=== PATIENT | male | born 1995 | race Caucasian/White ===

== ENCOUNTER 2016-07-25 20:11 | Emergency (ER) | payer OTHER ==
[~2016-07-25] VITALS: Ht 170.2 cm; Wt 61.2 kg
[2016-07-25 20:25] VITALS: BP 130/66
[2016-07-25] MEDS ORDERED: TETRACAINE 0.5% OPTH SOL 2 ML BTL OP ONE (22:30)
[2016-07-25] MEDS ORDERED: FLUORESCEIN OPTH STRIP 1 MG OP ONE (22:30)
--- NOTE | 2016-07-25 22:54 | NUR ---
PT TAKEN TO [facility]
--- NOTE | 2016-07-25 22:55 | NUR ---
21Y M BIB SELF, C/O LEFT EYE PAIN X 6 DAYS WITH NO C/O DIFFICULTY SEEING. NO REDNESS WITH LEFT EYE, BUT THERE IS SWELLING TO THE UPPER EYE LID. PT DENIES ANY N/V/D, CP, SOB AT THE MOMENT. PT DENIES ANY MEDICAL HX AND NKA. 8/10 PAIN.
--- NOTE | 2016-07-25 23:05 | NUR ---
Dr. Ponce evaluating patient
--- NOTE | 2016-07-25 23:35 | NUR ---
Patient discharged with v/s stable. Written and verbal after care instructions given and explained. Patient alert, oriented and verbalized understanding of instructions. Ambulatory with steady gait. All questions addressed prior to discharge. ID band removed. Patient advised to follow up with PMD. Rx of ERYTHROMYCIN 0.5% OPHTHALMIC OINTMENT given. Patient educated on indication of medication including possible reaction and side effects. Opportunity to ask questions provided and answered.
[2016-07-25 23:38] VITALS: BP 125/70
== END 2016-07-25 23:35 | disposition home or self-care (01) ==
LOC: MED 20:11
DX: H00.014 Hordeolum externum left upper eyelid (principal)
CPT/HCPCS: 99283

== ENCOUNTER 2016-08-24 16:15 | Emergency (ER) | payer OTHER ==
[~2016-08-24] VITALS: Ht 172.7 cm; Wt 61.3 kg
[2016-08-24 17:18] VITALS: BP 117/71
--- NOTE | 2016-08-24 17:20 | NUR ---
DR. ZAMAN SAW PT IN TRIAGE---TDAP ORDERED
--- NOTE | 2016-08-24 17:29 | NUR ---
Patient to OF where Dr. Bayron dominguez patient.
[2016-08-24] MEDS ORDERED: NEOMYCIN/POLYMYXIN/BACITRACIN 0.9 GM/1 PKT TP ONE (17:36)
--- NOTE | 2016-08-24 17:51 | NUR ---
Patient discharged with v/s stable. Written and verbal after care instructions given and explained. Patient alert, oriented and verbalized understanding of instructions. Ambulatory with steady gait. All questions addressed prior to discharge. ID band removed. Patient advised to follow up with PMD. Rx of TYLENOL/NEOSPORIN given. Patient educated on indication of medication including possible reaction and side effects. Opportunity to ask questions provided and answered.
[2016-08-24 17:52] VITALS: BP 117/71
== END 2016-08-24 17:51 | disposition home or self-care (01) ==
LOC: MED 16:15
DX: S67.193A Crushing injury of left middle finger, initial encounter (principal); W20.8XXA Other cause of strike by thrown, projected or falling object, initial encounter; Y93.89 Activity, other specified; Y92.89 Other specified places as the place of occurrence of the external cause; Y99.8 Other external cause status
CPT/HCPCS: 90471; 90715; 99283

== ENCOUNTER 2016-09-18 13:17 | Emergency (ER) | payer OTHER ==
[~2016-09-18] VITALS: Ht 172.7 cm; Wt 63.5 kg
[2016-09-18 13:29] VITALS: BP 155/74
--- NOTE | 2016-09-18 13:40 | NUR ---
Patient taken to XRAY via wheelchair per tech--from lobby.
--- NOTE | 2016-09-18 13:46 | NUR ---
Patient back from XRAY via wheelchair per tech--to lobby.
--- NOTE | 2016-09-18 17:42 | NUR ---
Patient to OF.
--- NOTE | 2016-09-18 17:45 | NUR ---
PATIENT PRESENTS TO ED WITH C/O LEFT HEEL PAIN . PT STATES HE WAS PLAYING BASKETBALL 2 DAYS AGO AND CAME DOWN HARD ON HIS LEFT HEEL, CAUSING IMMEDIATE PAIN . DENIES N/V/D; SKIN IS PINK/WARM/DRY; AAOX4 WITH EVEN AND STEADY GAIT; LUNGS CLEAR BL; HR EVEN AND REGULAR; PT DENIES ANY FEVER, CP, SOB, OR COUGH AT THIS TIME; PATIENT STATES PAIN OF 8/10 AT THIS TIME; VSS; PATIENT POSITIONED FOR COMFORT; HOB ELEVATED; BEDRAILS UP X2; BED DOWN. ER MD MADE AWARE OF PT STATUS.
--- NOTE | 2016-09-18 19:00 | NUR ---
Patient being evaluated by Dr. Zamora at bedside.
--- NOTE | 2016-09-18 19:01 | NUR ---
Dr. Zamora evaluaitng patient.
[2016-09-18 19:20] VITALS: BP 139/70
--- NOTE | 2016-09-18 19:21 | NUR ---
Patient discharged with v/s stable. Written and verbal after care instructions given and explained. Patient alert, oriented and verbalized understanding of instructions. Ambulatory with steady gait WITH CRUTCHES. All questions addressed prior to discharge. ID band removed. Patient advised to follow up with PMD. Rx of TYLENOL WITH CODEINE, NAPROSYN given. Patient educated on indication of medication including possible reaction and side effects. Opportunity to ask questions provided and answered.
== END 2016-09-18 19:21 | disposition home or self-care (01) ==
LOC: MED 13:17
DX: S90.32XA Contusion of left foot, initial encounter (principal); Z71.6 Tobacco abuse counseling; X58.XXXA Exposure to other specified factors, initial encounter; Y93.67 Activity, basketball; Y92.89 Other specified places as the place of occurrence of the external cause; Y99.8 Other external cause status
CPT/HCPCS: 73650; 99284

== ENCOUNTER 2018-06-05 23:54 | Emergency (ER) | payer OTHER ==
[~2018-06-05] VITALS: Ht 170.2 cm; Wt 63.5 kg
[2018-06-06 00:03] VITALS: BP 140/88
--- NOTE | 2018-06-06 00:14 | NUR ---
PT TRIAGED AND AMBULATED TO BED 6
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
--- NOTE | 2018-06-06 00:21 | NUR ---
Dr. Jones evaluating patient at bedside.
[2018-06-06] MEDS ORDERED: HYDROcodone/APAP 5/325 MG 1 TAB TAB PO ONE (00:25)
--- NOTE | 2018-06-06 00:37 | NUR ---
PT TAKEN TO CT
--- NOTE | 2018-06-06 01:32 | NUR ---
Dr. Jones evaluating patient at bedside.
--- NOTE | 2018-06-06 01:58 | NUR ---
Patient discharged with v/s stable. Written and verbal after care instructions given and explained. Patient alert, oriented and verbalized understanding of instructions. Ambulatory with steady gait. All questions addressed prior to discharge. ID band removed. Patient advised to follow up with PMD. Rx of KEFLEX, IBUPROFEN given. Patient educated on indication of medication including possible reaction and side effects. Opportunity to ask questions provided and answered.
[2018-06-06 02:19] VITALS: BP 138/68
== END 2018-06-06 01:58 | disposition home or self-care (01) ==
LOC: MED 23:54
DX: S02.2XXA Fracture of nasal bones, initial encounter for closed fracture (principal); S01.21XA Laceration without foreign body of nose, initial encounter; S00.03XA Contusion of scalp, initial encounter; Y04.8XXA Assault by other bodily force, initial encounter; Y93.89 Activity, other specified; Y92.89 Other specified places as the place of occurrence of the external cause; Y99.8 Other external cause status; R55 Syncope and collapse
CPT/HCPCS: 70450; 70486; 90471; 90715; 99284

== ENCOUNTER 2019-11-30 14:31 | Emergency (ER) | payer OTHER ==
[~2019-11-30] VITALS: Ht 172.7 cm; Wt 63.5 kg
[2019-11-30 14:44] VITALS: BP 110/79
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
--- NOTE | 2019-11-30 15:05 | NUR ---
RAD AT BEDSIDE
[2019-11-30 17:09] VITALS: BP 110/79
== END 2019-11-30 17:09 | disposition home or self-care (01) ==
LOC: MED 14:31
DX: M79.671 Pain in right foot (principal)
CPT/HCPCS: 73630; 99283; Q0092